=== PATIENT | female | born 1985 | race Caucasian/White ===

== ENCOUNTER 2022-08-19 23:47 | Emergency (ER) | payer BC ==
[2022-08-20] MEDS ORDERED: Penicillin V Potassium 500 MG Tab PO STA (05:19)
[2022-08-20] MEDS ORDERED: Acetaminophen/HYDROcodone 325-5 MG Tab PO ONE (05:19)
== END 2022-08-20 05:26 | disposition home or self-care (01) ==
LOC: MW.ED 23:47
DX: K08.89 Other specified disorders of teeth and supporting structures (principal)
CPT/HCPCS: 99282; A9270; 99283